=== PATIENT | male | born 1985 | race Caucasian/White ===

== ENCOUNTER 2018-02-06 12:32 | Emergency (ER) | payer SELFPAY ==
[~2018-02-06] VITALS: Ht 175.3 cm; Wt 106.5 kg
[~2018-02-06 12:32] MED LIST: DICY1TAB26 PO; METH5SOL3 PO; NAPR500 PO
[2018-02-06 12:36] VITALS: BP 143/75; PULSE 97; RESP 16; TEMP 98.9; O2SAT 98
[2018-02-06] MEDS ORDERED: METH40TA PO (12:45)
[2018-02-06] MEDS ORDERED: SODIUM CHLOR 0.9% 1000 ML INJ 1,000 ML IV ONE (13:15)
[2018-02-06 13:34] LABS: AUTOMATED NEUTROPHIL # 6.3 TH/MM3 (1.8-7.7); BASOPHIL # 0.1 TH/MM3 (0-0.2); BASOPHIL % 1.2 % (0.0-2.0); EOSINOPHIL % 0.4 % (0.0-4.0); HEMATOCRIT 38.2 % (39.0-51.0); HEMOGLOBIN 12.7 GM/DL (13.0-17.0); LYMPH % 27.4 % (9.0-44.0); LYMPHOCYTE # 2.6 TH/MM3 (1.0-4.8); MEAN CELL VOLUME 86.8 FL (80.0-100.0); MEAN CORPUSCULAR HEMOGLOBIN 28.8 PG (27.0-34.0); MEAN CORPUSCULAR HGB CONC 33.2 % (32.0-36.0); MEAN PLATELET VOLUME 8.8 FL (7.0-11.0); MONO % 6.1 % (0.0-8.0); MONOCYTE # 0.6 TH/MM3 (0-0.9); NEUT % 64.9 % (16.0-70.0); PLATELET COUNT 220 TH/MM3 (150-450); RED CELL DISTRIBUTION WIDTH 12.6 % (11.6-17.2); WHITE BLOOD COUNT 9.6 TH/MM3 (4.0-11.0)
--- NOTE | 2018-02-06 13:34 | PD ---
HPI Chief Complaint: Seizure Time Seen by Provider: 13:01 Travel History International Travel<30 days: No Contact w/Intl Traveler<30days: No Traveled to known affect area: No History of Present Illness HPI This is a 32-year-old male who presented to the ER history of any seizure episode at work. [place] and felt hot/warm and was sweating and then he had blurred vision and then felt that he does not recall anything after that.. The paramedics, patient had a witnessed seizures by his coworkers and was postictal, no tongue bites or bladder/bowel incontinence. Patient has no history of seizures and has not taken any medications. Patient does not have any inflammatory symptoms and denies any chest pain or shortness of breath or headache or blurred vision and stays "I am fine". PFSH Past Medical History Arthritis: No Blood Disorders: No Anxiety: Yes Depression: No Cancer: No Cardiovascular Problems: No Diminished Hearing: No Endocrine: No Gastrointestinal Disorders: No Genitourinary: No Immune Disorder: No Musculoskeletal: Yes (HERNIATED DISK LOWER BACK) Neurologic: No Psychiatric: Yes ([place] FOR ACCIDENTAL OD PER PT) Reproductive: No Respiratory: No Immunizations Current: Yes Past Surgical History AICD: No Appendectomy: Yes Arteriovenous Shunt: No Insulin Pump: No Joint Replacement: No Pacemaker: No Other Surgery: Yes (HAND SURG) Social History Alcohol Use: Yes (OCC) Tobacco Use: No Substance Use: No (methadone) Allergies-Medications (Allergen,Severity, Reaction): Coded Allergies: No Known Allergies (Verified , 01/19/14) Reported Meds & Prescriptions Reported Meds & Active Scripts Active Reported Methadone (Methadone HCl) 40 Mg Tab 110 Mg PO DAILY Review of Systems Except as stated in HPI: all other systems reviewed are Neg Physical Exam Narrative GENERAL: Alert oriented 3 no acute distress SKIN: Focused skin assessment warm/dry. HEAD: Atraumatic. Normocephalic. EYES: Pupils equal and round. No scleral icterus. No injection or drainage. ENT: No nasal bleeding or discharge. Mucous membranes pink and moist. NECK: Trachea midline. No JVD. CARDIOVASCULAR: Regular rate and rhythm. No murmur appreciated. RESPIRATORY: No accessory muscle use. Clear to auscultation. Breath sounds equal bilaterally. GASTROINTESTINAL: Abdomen soft, non-tender, nondistended. Hepatic and splenic margins not palpable. MUSCULOSKELETAL: No obvious deformities. No clubbing. No cyanosis. No edema. NEUROLOGICAL: Awake and alert. No obvious cranial nerve deficits. Motor grossly within normal limits. Normal speech. PSYCHIATRIC: Appropriate mood and affect; insight and judgment normal. Data Data Last Documented VS Vital Signs Date Time Temp Pulse Resp B/P (MAP) Pulse Ox O2 Delivery O2 Flow Rate FiO2 02/06/18 12:36 98.9 97 16 143/75 (97) 98 Orders Orders Complete Blood Count With Diff (02/06/18 13:05) Comprehensive Metabolic Panel (02/06/18 13:05) Ct Brain W/O Iv Contrast(Rout) (02/06/18 ) Sodium Chlor 0.9% 1000 Ml Inj (Ns 1000 M (02/06/18 13:15) Ed Discharge Order (02/06/18 14:51) Potassium Chloride (Kcl) (02/06/18 15:00) Labs Laboratory Tests Test 02/06/18 13:16 White Blood Count 9.6 TH/MM3 Red Blood Count 4.40 MIL/MM3 Hemoglobin 12.7 GM/DL Hematocrit 38.2 % Mean Corpuscular Volume 86.8 FL Mean Corpuscular Hemoglobin 28.8 PG Mean Corpuscular Hemoglobin Concent 33.2 % Red Cell Distribution Width 12.6 % Platelet Count 220 TH/MM3 Mean Platelet Volume 8.8 FL Neutrophils (%) (Auto) 64.9 % Lymphocytes (%) (Auto) 27.4 % Monocytes (%) (Auto) 6.1 % Eosinophils (%) (Auto) 0.4 % Basophils (%) (Auto) 1.2 % Neutrophils # (Auto) 6.3 TH/MM3 Lymphocytes # (Auto) 2.6 TH/MM3 Monocytes # (Auto) 0.6 TH/MM3 Eosinophils # (Auto) 0.0 TH/MM3 Basophils # (Auto) 0.1 TH/MM3 CBC Comment DIFF FINAL Differential Comment Blood Urea Nitrogen 11 MG/DL Creatinine 0.91 MG/DL Random Glucose 107 MG/DL Total Protein 6.8 GM/DL Albumin 3.5 GM/DL Calcium Level 8.5 MG/DL Alkaline Phosphatase 64 U/L Aspartate Amino Transf (AST/SGOT) 41 U/L Alanine Aminotransferase (ALT/SGPT) 45 U/L Total Bilirubin 0.7 MG/DL Sodium Level 140 MEQ/L Potassium Level 3.1 MEQ/L Chloride Level 107 MEQ/L Carbon Dioxide Level 27.3 MEQ/L Anion Gap 6 MEQ/L Estimat Glomerular Filtration Rate 98 ML/MIN MDM Medical Decision Making Medical Screen Exam Complete: Yes Emergency Medical Condition: Yes Differential Diagnosis Seizures, intracranial pathology, dehydration Narrative Course This is a 32-year-old male presents to the ER complaining of seizure activity at work. Labs are within normal limits, CAT scan is unremarkable. Patient improved in the ER and is stable to be discharged. I discussed with the patient that there is no need for starting antiplatelet drugs since it was only one incident of seizures although I recommended to follow-up with a primary care physician and see if seizures occur that he will need an MRI of the brain and to be started on antiseizure medications. Patient understands and agrees to plan of care. Diagnosis Primary Impression: Seizure Additional Instructions: Return to ER if symptoms change or do not improve. Follow-up with primary care physician. Disposition: 01 DISCHARGE HOME Condition: Stable Keshav Garza MD Feb 06, 2018 13:34
[2018-02-06 13:52] LABS: CHLORIDE 107 MEQ/L (98-107); SODIUM (NA) 140 MEQ/L (136-145)
[2018-02-06 13:55] LABS: ALBUMIN 3.5 GM/DL (3.4-5.0); BICARBONATE 27.3 MEQ/L (21.0-32.0); CALCIUM 8.5 MG/DL (8.5-10.1); GLUCOSE,RANDOM 107 MG/DL (74-106)
[2018-02-06 13:56] LABS: BLOOD UREA NITROGEN 11 MG/DL (7-18)
[2018-02-06 13:59] LABS: ALT (GPT) 45 U/L (12-78); AST (GOT) 41 U/L (15-37); CREATININE 0.91 MG/DL (0.60-1.30); GLOMERULAR FILTRATION RATE 98 ML/MIN (>89)
[2018-02-06 14:00] LABS: TOTAL BILIRUBIN ADULT 0.7 MG/DL (0.2-1.0); TOTAL PROTEIN 6.8 GM/DL (6.4-8.2)
[2018-02-06 14:01] LABS: ALKALINE PHOSPHATASE 64 U/L (45-117)
--- NOTE | 2018-02-06 14:37 | RADRPT ---
EXAM DATE/TIME: 02/06/2018 14:26 [facility] COMPARISON: CT BRAIN W/O CONTRAST, July 19, 2010, 20:49. INDICATIONS : Trauma. Fall. Seizure. RADIATION DOSE: 66.33 CTDIvol (mGy) MEDICAL HISTORY : None SURGICAL HISTORY : Appendectomy. ENCOUNTER: Initial ACUITY: 1 day PAIN SCALE: 0/10 LOCATION: cranial TECHNIQUE: Multiple contiguous axial images were obtained of the head. Using automated exposure control and adj ustment of the mA and/or kV according to patient size, radiation dose was kept as low as reasonably a chievable to obtain optimal diagnostic quality images. DICOM format image data is available electro nically for review and comparison. FINDINGS: CEREBRUM: The ventricles are normal for age. No evidence of midline shift, mass lesion, hemorrhage or acute in farction. No extra-axial fluid collections are seen. POSTERIOR FOSSA: The cerebellum and brainstem are intact. The 4th ventricle is midline. The cerebellopontine angle i s unremarkable. EXTRACRANIAL: The visualized portion of the orbits is intact. SKULL: The calvaria is intact. No evidence of skull fracture. CONCLUSION: Normal examination for a patient of this age. No significant change has occurred. Mookie Payne MD on February 06, 2018 at 14:34 Board Certified Radiologist. This report was verified electronically.
[2018-02-06] MEDS ORDERED: POTASSIUM CHLORIDE 20 MEQ CONTROLLED RELEASE TAB PO ONE (15:00)
[2018-02-06 15:25] VITALS: BP 142/78
== END 2018-02-06 15:48 | disposition home or self-care (01) ==
LOC: PHED 12:32
DX: R56.9 Unspecified convulsions (principal)
CPT/HCPCS: 70450; 80053; 85025; 96360; 96361; 99284; J7030